=== PATIENT | male | born 1940 | race African-American/Black ===

== ENCOUNTER 2017-10-07 09:23 | Day surgery (SDC) | payer OTHER ==
--- NOTE | 2017-10-04 18:20 | EKG ---
Test Date: 2017-10-04 Test Time: 15:15:24 Line Service Technician: GRANT MEASUREMENT RESULTS: Intervals: Rate: 69 MO: 148 QRSD: 148 QT: 438 QTc: 469 [place]: P: 53 MO: 148 QRS: -71 T: 25 INTERPRETIVE STATEMENTS: Sinus rhythm with premature atrial complexes Right bundle branch block Left axis Abnormal ECG Compared to ECG 03/21/2017 13:28:14 Myocardial infarct finding no longer present Electronically Signed On 10-04-17 18:19:23 CDT by Anil Gonsalez
[2017-10-07] MEDS ORDERED: NA CHLORIDE 0.9% 1,000 ML ONE (10:10)
[2017-10-07] MEDS ORDERED: PROPOFOL 200 MG/20 ML VIAL IV ONE (12:03)
[2017-10-07] MEDS ORDERED: MIDAZOLAM HCL 2 MG/2 ML INJ ONE (12:03)
[2017-10-07] MEDS ORDERED: LIDOCAINE 2% MPF 5 ML VIAL ONE (12:04)
[2017-10-07] MEDS ORDERED: FENTANYL CITR 100 MCG/2 ML ONE (12:04)
[2017-10-07] MEDS ORDERED: ONDANSETRON HCL 40 MG/20 ML VIAL ONE (12:04)
[2017-10-07] MEDS ORDERED: ROCURONIUM 50 MG/5 ML VIAL IV ONE (12:05)
[2017-10-07] MEDS ORDERED: LIDOCAINE 1% W/EPI 1:100,000 MDV 50 ML VIAL ONE (12:32)
[2017-10-07] MEDS ORDERED: EPHEDRINE SULF 50 MG/10 ML SYR ONE (14:14)
--- NOTE | 2017-10-07 14:18 | P.BOP ---
Preoperative diagnosis: dysphonia Postoperative diagnosis: same Primary procedure: DL with injection Master Motorcycle Technician: NONE,NONE Estimated blood loss: nil Specimen: none Anesthesia: General Complications: None Implants: Prolaryn Plus 0.5ml Fluids & blood products: crystalloid 400ml Transferred to: Recovery Room Condition: Good
[2017-10-07] MEDS ORDERED: GLYCOPYRROLATE 0.2 MG/ML SYR ONE (14:22)
[2017-10-07] MEDS ORDERED: NEOSTIGMINE 1 MG/ML -5 ML SYRINGE ONE (14:31)
[2017-10-07] MEDS ORDERED: ONDANSETRON 4 MG/2 ML VIAL ONE (14:49)
[2017-10-07] MEDS ORDERED: MEPERIDINE HCL 50 MG/ML AMP ONE (14:49)
[2017-10-07] MEDS ORDERED: HYDROCOD 2.5mg-ACETAMIN 108mg/5mL Soln ONE (16:19)
--- NOTE | 2017-10-10 12:27 | OP ---
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 Postoperative Diagnoses: Dysphonia and vocal cord atrophy. Procedure: Direct laryngoscopy with therapeutic injection into the vocal cord. Indication For Procedure: Mr. Summers presented to the clinic with dysphonia and significantly decreas ed maximal phonatory time on laryngoscopy. He was noted to have a glottic gap with bilateral vocal c ord atrophy despite normal mobility. The risks, benefits, and alternatives to the procedure were dis cussed with the patient who agreed to proceed. Description Of Procedure: The patient was brought to the operating room. He was placed under genera l anesthesia via oral endotracheal tube. A shoulder roll was placed. The head was extended and a di rect laryngoscopy was performed using the JingElderscanHenokWaveseis laryngoscope fitted with a 15-degree telescope . The laryngoscope was positioned for visualization of the vocal cords and suspended from the [facility] tand. A suction was used to remove a small amount of secretions from the glottic space. Prolaryn Pl us was prepared with the scientific research associate's provided needle for transoral injection. Under telescopic vi sualization, the tip of the needle was inserted just lateral to the right true vocal fold. A small a mount of Prolaryn Plus was injected into the space. The laryngoscope was then re-ingested for better visualization of the left vocal cord. Left vocal cord injection was performed in a similar manner. After left vocal cord injection, a small additional amount of injection was performed onto the right side. Bleeding was minimal. A total of 0.5 mL was injected into this patient. The laryngoscope wa s carefully removed and the patient returned to care of anesthesia for awakening and extubation in e operating room, which proceeded without difficulty. The patient will be observed in the postoperat greg recovery area for any signs of airway obstruction and will remain under strict voice rest for 3 days with conservative voice use for 1 week following that. MEAGHAN/MELVIN Voice ID: [id number] Report ID: [id number]
== END 2017-10-07 16:55 | disposition home or self-care (01) ==
LOC: OR 09:23
PROVIDERS: ATTEND Otolaryngology
PROC: 3E0F8GC Introduction of Other Therapeutic Substance into Respiratory Tract, Via Natural or Artificial Opening Endoscopic (ICD-10-PCS; principal; 2017-10-07 12:15)
DX: R49.0 Dysphonia (principal); J38.3 Other diseases of vocal cords; J38.7 Other diseases of larynx; K21.9 Gastro-esophageal reflux disease without esophagitis; I10 Essential (primary) hypertension; E78.00 Pure hypercholesterolemia, unspecified; Z91.013 Allergy to seafood; E11.9 Type 2 diabetes mellitus without complications; Z87.891 Personal history of nicotine dependence
CPT/HCPCS: 31571; 82962 ×2; 93005; J2175; J2250; J2405; J2710; J3010; J7030

== ENCOUNTER 2019-05-09 10:13 | Emergency (ER) | payer OTHER ==
[2019-05-09 11:30] LABS: Absolute Lymphocytes (CBC) 2.7 K/uL (0.7-4.9); Basophils % 0.7 % (0-1.3); Hematocrit 34.2 % (39.6-49.0); Lymphocytes % 42.2 % (15.3-44.8); MPV 8.2 fL (7.6-11.3); RBC Red Blood Cell Count 3.92 M/uL (4.33-5.43)
--- NOTE | 2019-05-09 11:32 | RAD REPORT ---
EXAM DESCRIPTION: RAD - Chest Single View - 05/09/2019 11:26 am CLINICAL HISTORY: DYSPNEA Chest pain. COMPARISON: Chest Pa And Lat (2 Views) dated 12/06/2016; CHEST PA AND LAT 2 VIEW dated 10/02/2009; CHES T PA AND LAT 2 VIEW dated 07/08/2004 FINDINGS: Portable technique limits examination quality. The lungs are grossly clear. The heart is normal in size. No displaced fractures. IMPRESSION: No acute intrathoracic process suspected.
[2019-05-09 11:36] LABS: Protime INR 1.1
[2019-05-09 11:52] LABS: Albumin 3.6 g/dL (3.4-5.0); Bilirubin Direct 0.3 mg/dL (0-0.2); Bilirubin Total 1.1 mg/dL (0.2-1.0); Magnesium 1.9 mg/dL (1.8-2.4); Potassium 4.1 mmol/L (3.5-5.1); Protein, Total 7.6 g/dL (6.4-8.2); Troponin (Emerg Dept Use Only) 0.02 ng/mL (0.0-0.045)
--- NOTE | 2019-05-09 13:35 | ER ---
Nurse's Notes [facility] Name: Deepak Summers Age: 78 yrs Sex: Male : 1940 Arrival Date: 05/09/2019 Time: 10:16 Bed 2 Private MD: Marcus Monae Diagnosis: Atrioventricular block, complete Presentation: 05/08 10:32 Chief complaint: Patient states: Fatigue and shortness of breath with activity for the aj1 past 10 days. Denies pain. Coronavirus screen: The patient has NOT traveled to a country currently being monitored by the [facility] within the last 14 days. Ebola Screen: Patient denies travel to an Ebola-affected area in the 21 days before illness onset. Initial Sepsis Screen: Does the patient meet any 2 criteria? No. Patient's initial sepsis screen is negative. Does the patient have a suspected source of infection? No. Patient's initial sepsis screen is negative. Risk Assessment: Do you want to hurt yourself or someone else? Patient reports no desire to harm self or others. 10:32 Method Of Arrival: Ambulatory aj1 10:32 Acuity: DANIEL 2 aj1 12:17 Onset of symptoms was May 09, 2019. tw2 Triage Assessment: 10:37 General: Appears in no apparent distress. comfortable, Behavior is calm, cooperative, aj1 appropriate for age. Pain: Denies pain. Historical: - Allergies: 10:36 SHELLFISH; aj1 - Home Meds: 10:36 finasteride 5 mg oral tab 1 tab once daily [Active]; losartan-hydrochlorothiazide aj1 100-25 mg oral tab 1 tab once daily [Active]; meclizine 12.5 mg Oral tab 1 tabs once daily [Active]; oxybutynin chloride 5 mg Oral tr24 1 tab once daily [Active]; pantoprazole 40 mg oral TbEC 1 tab once daily [Active]; simvastatin 20 mg Oral tab 1 tab once daily [Active]; tramadol 50 mg Oral tab 1 tab thee times daily [Active]; - PMHx: 10:36 Diabetes - NIDDM; Hypertension; aj1 - Immunization history:: Adult Immunizations up to date, Flu vaccine is up to date. - Social history:: Smoking status: Patient denies any tobacco usage or history of. Patient/guardian denies using alcohol, street drugs. Screenin:35 Abuse screen: Denies threats or abuse. Denies injuries from another. Nutritional aj1 screening: No deficits noted. Tuberculosis screening: No symptoms or risk factors identified. 12:17 Fall Risk None identified. tw2 Assessment: 10:35 General: Appears in no apparent distress. comfortable, Behavior is calm, cooperative, aj1 appropriate for age, Reports fatigue for for the past 10 days. Pain: Denies pain. Neuro: Level of Consciousness is awake, alert, obeys commands, Oriented to person, place, time, situation. Cardiovascular: Reports shortness of breath, Denies chest pain, Heart tones S1 S2 present Patient's skin is warm and dry. Rhythm is 3rd degree heart block. Respiratory: Reports shortness of breath on exertion Airway is patent Respiratory effort is even, unlabored, Respiratory pattern is regular, symmetrical. GI: No signs and/or symptoms were reported involving the gastrointestinal system. Abdomen is flat, non-distended. : No signs and/or symptoms were reported regarding the genitourinary system. EENT: No signs and/or symptoms were reported regarding the EENT system. Derm: No signs and/or symptoms reported regarding the dermatologic system. Skin is pink, warm \T\ dry. normal. Musculoskeletal: No signs and/or symptoms reported regarding the musculoskeletal system. Circulation, motion, and sensation intact. 11:04 Reassessment: Patient's heart rate is dropping down to 36 bpm. Notified JUAN MANUEL Pulido. aj1 Patient transported to ER bed 2. 12:00 Reassessment: Patient appears in no apparent distress at this time. Patient and/or hb family updated on plan of care and expected duration. Pain level reassessed. Patient is alert, oriented x 3, equal unlabored respirations, skin warm/dry/pink. 13:00 Reassessment: Patient appears in no apparent distress at this time. Patient and/or hb family updated on plan of care and expected duration. Pain level reassessed. HR 27-38, PA Robby aware. 13:54 Reassessment: Patient appears in no apparent distress at this time. Patient and/or tw2 family updated on plan of care and expected duration. Pain level reassessed. 14:59 Reassessment: Patient appears in no apparent distress at this time. Patient and/or tw2 family updated on plan of care and expected duration. Pain level reassessed. Patient states symptoms have not improved. Vital Signs: 10:32 BP 152 / 64; Pulse 44; Resp 18; Pulse Ox 100% on R/A; Weight 74.84 kg (R); Height 5 ft. aj1 7 in. (170.18 cm) (R); Pain 0/10; 11:07 BP 172 / 70; Pulse 37; Resp 21; Temp 98.0; Pulse Ox 100% on R/A; aj1 12:00 BP 154 / 65; Pulse 36; Resp 15; Pulse Ox 100% on R/A; hb 12:30 BP 138 / 73; Pulse 57; Resp 17; Pulse Ox 100% on R/A; tw2 12:53 BP 138 / 73; Pulse 29; Resp 17; Pulse Ox 100% on R/A; tw2 12:59 BP 165 / 83; Pulse 42; Resp 17; Pulse Ox 100% on R/A; tw2 13:53 BP 176 / 65; Pulse 36; Resp 17; Pulse Ox 95% on R/A; tw2 14:59 BP 172 / 67; Pulse 31; Resp 17; Pulse Ox 99% on R/A; tw2 10:32 Body Mass Index 25.84 (74.84 kg, 170.18 cm) aj1 12:53 provider notified and at bedside at this time. pt a\T\o x4 nad at this time. no further tw2 orders at this time, Vitals: 12:00 Cardiac Rhythm Assessment. tw2 ED Course: 10:16 Patient arrived in ED. ag5 10:16 Angelica Echeverria MD is Private Physician. ag5 10:17 Marcus Monae MD is Private Physician. ag5 10:31 Gosia Ferreira, LUIS is Primary Nurse. aj1 10:33 Triage completed. aj1 10:34 Robby Bah PA is PHCP. jr8 10:34 Eran Robison MD is Attending Physician. jr8 10:35 Patient has correct armband on for positive identification. Placed in gown. Bed in low aj1 position. Call light in reach. Side rails up X 1. powder mixer on. Pulse ox on. NIBP on. 10:35 No provider procedures requiring assistance completed. aj1 10:37 Arm band placed on. aj1 10:40 Missed attempt(s): 22 gauge in left antecubital area. Bleeding controlled, band aid aj1 applied, catheter tip intact. 10:43 EKG done, by ED staff, reviewed by Robby ZAMBRANO. jb1 11:07 Report given to Heather. SMITH. aj1 11:15 Missed attempt(s): 22 gauge in left antecubital area. Bleeding controlled, band aid tw2 applied, catheter tip intact. 11:22 Inserted saline lock: 18 gauge in left EJ, using aseptic technique. ,using aseptic hb technique. by Robby ZAMBRANO Blood collected. 12:16 Primary Nurse role handed off by Gosia Ferreira, LUIS tw2 12:16 Teri Tobias, LUIS is Primary Nurse. tw2 13:53 Report given to LUIS Soto at [facility]. tw2 14:59 Patient transferred, IV remains in place. tw2 Administered Medications: No medications were administered Outcome: 13:34 ER care complete, transfer ordered by . jr8 14:59 Patient left the ED. tw2 14:59 Transferred by ground EMS to [facility]. tw2 14:59 critical 14:59 Instructed on the need for transfer. Signatures: Raul Marin jb1 Gosia Ferreira RN RN aj1 Robby Bah PA PA jr8 Talya Gonzalez RN RN hb Wise, Tara, RN RN tw2 Saleem Key ag5 Corrections: (The following items were deleted from the chart) 12:59 12:55 BP 138 / 73; Pulse 29bpm; Resp 17bpm; Pulse Ox 100% RA; provider notified and at tw2 bedside at this time. pt a\T\o x4 nad at this time. no further orders at this time, ; tw2
--- NOTE | 2019-05-09 13:37 | EDPHYS ---
Physician Documentation [facility] Name: Deepak Summers Age: 78 yrs Sex: Male : 1940 Arrival Date: 05/09/2019 Time: 10:16 Bed 2 Private MD: Marcus Monae ED Physician Eran Robison HPI: 05/08 12:08 This 78 yrs old Black Male presents to ER via Ambulatory with complaints of General jr8 Weakness, JACOBS. 12:08 The patient has shortness of breath with light activity. Onset: The symptoms/episode jr8 began/occurred gradually, 10 day(s) ago. Duration: The symptoms are continuous. The patient's shortness of breath is aggravated by light activity, walking. Associated signs and symptoms: Pertinent positives: fatigue . Severity of symptoms: At their worst the symptoms were moderate in the emergency department the symptoms are unchanged. The patient has not experienced similar symptoms in the past. The patient has not recently seen a physician. Patient stated that over the past 10 days noticed that he has had increased fatigue and JACOBS that he has never had before. Denies recent chest pain or any other acute episodes. Stated that he came to ED today because he can barely get up and walk anywhere without feeling extremely worn out . Historical: - Allergies: 10:36 SHELLFISH; aj1 - Home Meds: 10:36 finasteride 5 mg oral tab 1 tab once daily [Active]; losartan-hydrochlorothiazide aj1 100-25 mg oral tab 1 tab once daily [Active]; meclizine 12.5 mg Oral tab 1 tabs once daily [Active]; oxybutynin chloride 5 mg Oral tr24 1 tab once daily [Active]; pantoprazole 40 mg oral TbEC 1 tab once daily [Active]; simvastatin 20 mg Oral tab 1 tab once daily [Active]; tramadol 50 mg Oral tab 1 tab thee times daily [Active]; - PMHx: 10:36 Diabetes - NIDDM; Hypertension; aj1 - Immunization history:: Adult Immunizations up to date, Flu vaccine is up to date. - Social history:: Smoking status: Patient denies any tobacco usage or history of. Patient/guardian denies using alcohol, street drugs. ROS: 12:08 Eyes: Negative for injury, pain, redness, and discharge, ENT: Negative for injury, jr8 pain, and discharge, Neck: Negative for injury, pain, and swelling, Cardiovascular: Negative for chest pain, palpitations, and edema, Abdomen/GI: Negative for abdominal pain, nausea, vomiting, diarrhea, and constipation, Back: Negative for injury and pain, MS/Extremity: Negative for injury and deformity, Skin: Negative for injury, rash, and discoloration, Neuro: Negative for headache, weakness, numbness, tingling, and seizure. 12:08 Constitutional: Positive for fatigue, malaise. 12:08 Respiratory: Positive for dyspnea on exertion, Negative for cough, shortness of breath, sputum production, wheezing. Exam: 12:08 Eyes: Pupils equal round and reactive to light, extra-ocular motions intact. Lids and jr8 lashes normal. Conjunctiva and sclera are non-icteric and not injected. Cornea within normal limits. Periorbital areas with no swelling, redness, or edema. ENT: Nares patent. No nasal discharge, no septal abnormalities noted. Tympanic membranes are normal and external auditory canals are clear. Oropharynx with no redness, swelling, or masses, exudates, or evidence of obstruction, uvula midline. Mucous membranes moist. Neck: Trachea midline, no thyromegaly or masses palpated, and no cervical lymphadenopathy. Supple, full range of motion without nuchal rigidity, or vertebral point tenderness. No Meningismus. Respiratory: Lungs have equal breath sounds bilaterally, clear to auscultation and percussion. No rales, rhonchi or wheezes noted. No increased work of breathing, no retractions or nasal flaring. Abdomen/GI: Soft, non-tender, with normal bowel sounds. No distension or tympany. No guarding or rebound. No evidence of tenderness throughout. Back: No spinal tenderness. No costovertebral tenderness. Full range of motion. Skin: Warm, dry with normal turgor. Normal color with no rashes, no lesions, and no evidence of cellulitis. MS/ Extremity: Pulses equal, no cyanosis. Neurovascular intact. Full, normal range of motion. Neuro: Awake and alert, GCS 15, oriented to person, place, time, and situation. Cranial nerves II-XII grossly intact. Motor strength 5/5 in all extremities. Sensory grossly intact. Cerebellar exam normal. Normal gait. 12:08 Cardiovascular: Rate: bradycardic, Rhythm: irregular, Pulses: Pulses are 2+ in right radial artery and left radial artery. Heart sounds: normal, normal S1and S2, Edema: is not appreciated, JVD: is not appreciated. 12:08 ECG was reviewed by the Attending Physician. Vital Signs: 10:32 BP 152 / 64; Pulse 44; Resp 18; Pulse Ox 100% on R/A; Weight 74.84 kg (R); Height 5 ft. aj1 7 in. (170.18 cm) (R); Pain 0/10; 11:07 BP 172 / 70; Pulse 37; Resp 21; Temp 98.0; Pulse Ox 100% on R/A; aj1 12:00 BP 154 / 65; Pulse 36; Resp 15; Pulse Ox 100% on R/A; hb 12:30 BP 138 / 73; Pulse 57; Resp 17; Pulse Ox 100% on R/A; tw2 12:53 BP 138 / 73; Pulse 29; Resp 17; Pulse Ox 100% on R/A; tw2 12:59 BP 165 / 83; Pulse 42; Resp 17; Pulse Ox 100% on R/A; tw2 13:53 BP 176 / 65; Pulse 36; Resp 17; Pulse Ox 95% on R/A; tw2 14:59 BP 172 / 67; Pulse 31; Resp 17; Pulse Ox 99% on R/A; tw2 10:32 Body Mass Index 25.84 (74.84 kg, 170.18 cm) aj1 12:53 provider notified and at bedside at this time. pt a\T\o x4 nad at this time. no further tw2 orders at this time, MDM: 10:42 Patient medically screened. jr8 12:08 Data reviewed: vital signs, nurses notes, lab test result(s), EKG, radiologic studies, jr8 plain films. Data interpreted: Pulse oximetry: on room air is 100 %. Interpretation: normal. Counseling: I had a detailed discussion with the patient and/or guardian regarding: the historical points, exam findings, and any diagnostic results supporting the discharge/admit diagnosis, lab results, radiology results, the need to transfer to another facility, [facility] does not immediately have the required specialist. ED course: Discussed with patient that he is in a complete heart block with low heart rate. That this is why he is having JACOBS and extreme fatigue. Most likely will require pacemaker and as such will need to be transferred to [facility]. Patient good with this. 13:32 ED course: Dr. Mijares at [facility] contacted and accepted patient . [facility] 05/08 10:34 Order name: Basic Metabolic Panel [facility] 05/08 10:34 Order name: CBC with Diff 05/08 10:34 Order name: LFT's [facility] 05/08 10:34 Order name: Magnesium [facility] 05/08 10:34 Order name: NT PRO-BNP [facility] 05/08 10:34 Order name: PT-INR [facility] 05/08 10:34 Order name: Troponin (emerg Dept Use Only) [facility] 05/08 11:36 Order name: CBC with Automated Diff; Complete Time: 12:07 EDMS 05/08 11:42 Order name: Protime (+INR); Complete Time: 12:07 EDMS 05/08 11:53 Order name: Basic Metabolic Panel; Complete Time: 12:07 EDMS 05/08 11:53 Order name: Liver (Hepatic) Function; Complete Time: 12:07 EDMS 05/08 11:53 Order name: Troponin (Emerg Dept Use Only); Complete Time: 12:07 EDMS 05/08 11:53 Order name: NT PRO-BNP; Complete Time: 12:07 EDMS 05/08 11:54 Order name: Magnesium; Complete Time: 12:07 EDMS 05/08 10:34 Order name: XRAY Chest (1 view) [facility] 05/08 10:34 Order name: EKG; Complete Time: 10:37 05/08 10:34 Order name: Cardiac monitoring; Complete Time: 10:38 05/08 10:34 Order name: EKG - Nurse/Tech; Complete Time: 10:57 05/08 10:34 Order name: IV Saline Lock; Complete Time: 11:39 05/08 10:34 Order name: Labs collected and sent; Complete Time: 11:39 [facility] 05/08 10:34 Order name: O2 Per Protocol; Complete Time: 10:38 05/08 10:34 Order name: O2 Sat Monitoring; Complete Time: 10:38 [facility] 05/08 13:24 Order name: RAD; Complete Time: 13:32 EDMS EC:08 Rate is 43 beats/min. Rhythm is irregular, 3rd degree (complete heart block). Left axis jr8 deviation noted. QRS interval is prolonged at 140 msec. QT interval is normal at 437 msec. No Q waves. T waves are Flattened in lead III. No ST changes noted. Clinical impression: 3rd degree heart block. Interpreted by me. Reviewed by me. Administered Medications: No medications were administered Disposition: 16:37 Co-signature as Attending Physician, Eran Robison MD I agree with the assessment and kdr plan of care. Disposition: 05/09/19 13:34 Transfer ordered to [facility]. Diagnosis is Atrioventricular block, complete. - Reason for transfer: Higher level of care. - Accepting physician is Dr. Mijares . - Condition is Stable. - Problem is new. - Symptoms are unchanged. Signatures: Dispatcher [employer] EDMS Gosia Ferreira, LUIS RN aj1 Eran Robison MD MD kdr Robby Bah PA PA jr8 Teri Tobias RN RN tw2 Corrections: (The following items were deleted from the chart) 14:59 13:34 05/09/2019 13:34 Transfer ordered to [facility]. tw2 Diagnosis is Atrioventricular block, complete. Reason for transfer: Higher level of care. Accepting physician is Dr. Mijares . Condition is Stable. Problem is new. Symptoms are unchanged. jr8
[2019-05-09 15:07] VITALS: TEMP 98
[2019-05-09 15:15] VITALS: BP 176/65; O2SAT 95
--- NOTE | 2019-05-10 08:54 | EKG ---
Test Date: 2019-05-09 Test Time: 10:37:44 Asphalt Blender: SHAQUILLE MEASUREMENT RESULTS: Intervals: Rate: 43 DE: QRSD: 140 QT: 518 QTc: 437 [place]: P: 50 DE: QRS: -64 T: 37 INTERPRETIVE STATEMENTS: complete heart block Right bundle branch block Left anterior fascicular block Bifascicular block Minimal voltage criteria for LVH, may be normal variant Abnormal ECG Compared to ECG 10/04/2017 15:15:24 AV dissociation now present Left anterior fascicular block now present Bifascicular block now present Left ventricular hypertrophy now present Sinus rhythm no longer present Atrial premature complex(es) no longer present Electronically Signed On 05-10-19 08:52:22 CDT by Brandin Guerrier
== END 2019-05-09 14:59 | disposition short-term general hospital (02) ==
LOC: ER 10:13
DX: I44.2 Atrioventricular block, complete (principal); Z91.013 Allergy to seafood; E11.9 Type 2 diabetes mellitus without complications; I10 Essential (primary) hypertension
CPT/HCPCS: 36415; 71045; 80048; 80076; 83735; 83880; 84484; 85025; 85610; 93005; 99285

== ENCOUNTER 2023-12-19 06:41 | Day surgery (SDC) | payer MEDICARE, OTHER ==
[2023-12-16 14:25] LABS: Absolute Eosinophils 0.3 K/uL (0-0.5); Absolute Lymphocytes (CBC) 2.3 K/uL (0.7-4.9); Absolute Monocytes 0.5 K/uL (0.1-1.3); Absolute Neutrophil 2.5 K/uL (1.8-8.0); Basophils % 0.5 % (0-1.3); Eosinophils % 5.4 % (0-4.4); Hematocrit 35.8 % (39.6-49.0); Hemoglobin 11.3 g/dL (13.6-17.9); Lymphocytes % 41.1 % (15.3-44.8); MCH 28.3 pg (27.0-35.0); MCHC 31.6 g/dL (32.0-36.0); MCV 89.5 fL (80-100); MPV 7.7 fL (7.6-11.3); Monocytes % 9.1 % (3.3-12.3); Neutrophils % 43.9 % (41.7-73.7); Platelets 270 thou/uL (152-406); Red Cell Distribution Width 13.4 % (12.1-15.2)
--- NOTE | 2023-12-16 14:32 | RAD REPORT ---
Procedure: Chest Pa And Lat (2 Views) HISTORY: Preop for cardiac catheterization COMPARISON: 2019 FINDINGS: The lungs appear clear of acute infiltrate. No significant pleural effusion noted. The heart is normal size. Pacemaker leads in place. IMPRESSION: No acute abnormality is displayed.
[2023-12-16 14:45] LABS: PT Prothrombin Time 11.3 SECONDS (9.4-12.5); PTT, Activated Partial Thromb 29.6 SECONDS (24.3-36.9); Protime INR 1.01
[2023-12-16 14:58] LABS: Anion Gap 6.1 mEq/L (5.0-15.0); Potassium 4.1 mEq/L (3.5-5.1)
[2023-12-19] MEDS ORDERED: NA CHLORIDE 0.9% 500 ML ONE (06:45)
[2023-12-19] MEDS ORDERED: FENTANYL CITR 100 MCG/2 ML ONE (07:19)
[2023-12-19] MEDS ORDERED: MIDAZOLAM HCL 2 MG/2 ML INJ ONE (07:19)
[2023-12-19] MEDS ORDERED: LIDOCAINE 1% 20 ML MDV ONE (07:33)
[2023-12-19] MEDS ORDERED: HEPA 1000U/500MLS 2,000 UNIT/1,000 ML BAG IV ONE (07:33)
[2023-12-19] MEDS ORDERED: HEPARIN 10,000 UNIT/10 ML VIAL IV ONE (07:33)
[2023-12-19] MEDS ORDERED: ATROPINE SULF 1 MG/10 ML SYR IV ONE (07:34)
[2023-12-19] MEDS ORDERED: HEPARIN 5000 UNIT/ML 1 ML VIAL ONE (07:34)
[2023-12-19] MEDS ORDERED: DIPHENHYDRAMINE 50 MG/ML VIAL ONE (07:35)
[2023-12-19] MEDS ORDERED: NITROGLYCERIN/D5W 50 MG/250 ML BTL IV ONE (07:35)
[2023-12-19] MEDS ORDERED: METHYLPREDNISOLONE 125 MG INJ ONE (07:35)
[2023-12-19 10:53] VITALS: BP 142/78; TEMP 98.4; O2SAT 97
--- NOTE | 2023-12-19 23:24 | OP ---
Date of Procedure: 12/19/2023 Surgeon: Mike Bynum Procedures Performed: 1.Left heart catheterization. 2.Selective coronary angiogram. Indication For Procedure: Shortness of breath, abnormal stress test. Complications: None. Estimated Blood Loss: Less than 50 cc. Access: Right radial, closed by TR band. Sedation Time: 20 minutes with 1 of Versed and 25 of fentanyl. Description Of Procedure: After risks, benefits, and alternatives were explained to the patient, the patient agreed to proceed with the procedure and signed informed consent. The patient was brought b k to the collaborating supervising physician, prepped and draped in sterile fashion. Time-out was performed. Sedation was ad ministered. Next, right radial access was obtained. [place] 4 catheter was advanced over J-wire to th e LV cavity. LVEDP was obtained. Pullback did not show any gradient. Same catheter was used for se lective angiogram. At the end of procedure, catheter was removed over a J-wire. Sheath was removed. TR band was applied. Hemostasis was achieved. The patient was moved back to recovery in stable co ndition. Findings: 1.Left main, normal. 2.LAD, normal. 3.Left circ, normal. 4.RCA, normal. 5.LVEDP 10 mmHg. Assessment And Plan: 1.Normal coronaries. 2.Normal filling pressures. 3.The plan will be to continue medical management. KERI Voice ID: [id number] Report ID: [id number]
--- NOTE | 2023-12-20 13:04 | EKG ---
Test Date: 2023-12-16 Test Time: 13:57:30 Lan Analyst: SAMANTHA MEASUREMENT RESULTS: Intervals: Rate: 72 MD: QRSD: 184 QT: 460 QTc: 503 [place]: P: MD: QRS: -81 T: 98 INTERPRETIVE STATEMENTS: Electronic ventricular pacemaker Compared to ECG 05/09/2019 10:37:44 AV block, complete (third-degree) no longer present Right bundle-branch block no longer present Left anterior fascicular block no longer present Bifascicular block no longer present Left ventricular hypertrophy no longer present Electronically Signed On 12-20-23 12:53:25 CDT by Mike Bynum
== END 2023-12-19 10:44 | disposition home or self-care (01) ==
LOC: CCL 06:41
PROVIDERS: ATTEND Internal Medicine Interventional Cardiology
DX: R94.39 Abnormal result of other cardiovascular function study (principal); R06.02 Shortness of breath; I35.1 Nonrheumatic aortic (valve) insufficiency; I49.5 Sick sinus syndrome; I10 Essential (primary) hypertension; E78.2 Mixed hyperlipidemia; E11.9 Type 2 diabetes mellitus without complications; Z95.0 Presence of cardiac pacemaker; Z79.899 Other long term (current) drug therapy; Z91.041 Radiographic dye allergy status; Z91.013 Allergy to seafood
CPT/HCPCS: 93005; 85025; 80048; 36415; 85610; 85730; 71046; 93458; 76937; C1893; Q9966; J1644; J2001; J1200; J2250; J3010; J2919; J7040; 99152; J0461

== ENCOUNTER 2024-12-21 09:45 | Emergency (ER) | payer MEDICARE, OTHER ==
[2024-12-21] MEDS ORDERED: HYDROMORPHONE HCL 1 MG/ML INJ ONE (11:17)
[2024-12-21] MEDS ORDERED: CYCLOBENZAPRINE 10 MG TAB ONE (11:17)
[2024-12-21] MEDS ORDERED: KETOROLAC 30 MG/ML INJ ONE (11:17)
--- NOTE | 2024-12-21 12:44 | RAD REPORT ---
EXAMINATION: Lumbar Spine 3 Views CLINICAL INDICATION: Male, 84 years old. low back pain with bilateral radiculopathy TECHNIQUE: AP, lateral, focused lateral lumbosacral views of the lumbar spine were obtained. [id number]. COMPARISON: No prior exam. FINDINGS: ALIGNMENT: Grade 1 anterolisthesis of L4 and L5. Partially imaged thoracolumbar curvature. BONES: Vertebral bodies are normal in height. No aggressive osseous lesions. DEGENERATIVE: Diffuse disc height loss which is most pronounced at L1-2, L4-5, L5-S1 where the disc h eight loss is moderate. Mild disc height loss otherwise. Vacuum disc is present at L1-2 and L2-3. SOFT TISSUE: No soft tissue abnormalities. IMPRESSION: No acute lumbar spine abnormality.
--- NOTE | 2024-12-21 12:57 | ER ---
Nurse's Notes [facility] Name: Deepak Summers Age: 84 yrs Sex: Male : 1940 Arrival Date: 12/21/2024 Time: 09:45 Bed 15 Private MD: Diagnosis: Sciatica, low back pain Presentation: 12/21 10:02 Chief complaint: Patient states: L shoulder, L lower back/ flank and L leg pain that ss began 1 week ago. No known injury. Pt reports it began after getting out of bed. Coronavirus screen: Client denies travel out of the [place] in the last 14 days. Ebola Screen: Patient denies exposure to infectious person. Patient denies travel to an Ebola-affected area in the 21 days before illness onset. Initial Sepsis Screen: Does the patient meet any 2 criteria? No. Patient's initial sepsis screen is negative. Does the patient have a suspected source of infection? No. Patient's initial sepsis screen is negative. Risk Assessment: Do you want to hurt yourself or someone else? Patient reports no desire to harm self or others. Onset of symptoms was December 14, 2024. 10:02 Method Of Arrival: Ambulatory ss 10:02 Acuity: DANIEL 3 ss Historical: - Allergies: 10:04 SHELLFISH; ss - PMHx: 10:04 Diabetes - NIDDM; Hypertension; ss - Immunization history:: Adult Immunizations not up to date. - Infectious Disease History:: Denies. - Social history:: Smoking status: Patient denies any tobacco usage or history of. Screenin:12 [facility] ED Fall Risk Assessment (Adult) History of falling in the last 3 months, ar8 including since admission No falls in past 3 months (0 pts) Confusion or Disorientation No (0 pts) Intoxicated or Sedated No (0 pts) Impaired Gait No (0 pts) Mobility Assist Device Used No (0 pt) Altered Elimination No (0 pt) Score/Fall Risk Level 0 - 2 = Low Risk Oriented to surroundings, Maintained a safe environment. Abuse screen: Denies threats or abuse. Nutritional screening: No deficits noted. Tuberculosis screening: No symptoms or risk factors identified. Assessment: 11:12 General: Appears in no apparent distress. Behavior is calm, cooperative. Pain: ar8 Complains of pain in left hip and left leg. Neuro: Level of Consciousness is awake, alert, obeys commands, Oriented to person, place, time, situation. Cardiovascular: Patient's skin is warm and dry. Respiratory: Airway is patent Respiratory effort is even, unlabored, Respiratory pattern is regular, symmetrical. GI: No signs and/or symptoms were reported involving the gastrointestinal system. : No signs and/or symptoms were reported regarding the genitourinary system. Musculoskeletal: Reports pain in left hip and left leg. 13:15 Reassessment: Delay in discharge- awaiting ride. ar8 Vital Signs: 10:02 Resp 16; Weight 73.94 kg; Height 5 ft. 7 in. ; Pain 5/10; ss 10:04 BP 123 / 69; Pulse 105; Resp 16; Pulse Ox 100% on R/A; ss 10:06 Temp 98.2(O); ss 11:12 BP 122 / 68; Pulse 87; Resp 17; Pulse Ox 100% on R/A; Pain 3/10; ar8 12:00 BP 123 / 74; Pulse 75; Resp 18; Pulse Ox 100% on R/A; ar8 12:51 BP 131 / 71; Pulse 81; Resp 16; Pulse Ox 100% on R/A; Pain 1/10; ar8 12:51 Pain 1/10; ar8 12:51 Pain 1/10; ar8 13:45 BP 124 / 99; Pulse 94; Resp 18; Pulse Ox 98% on R/A; Pain 1/10; ar8 10:02 Body Mass Index 25.53 (73.94 kg, 170.18 cm) ss 10:02 Pain Scale: Adult ss 11:12 Pain Scale: Adult ar8 12:51 Pain Scale: Adult ar8 12:51 Pain Scale: Adult ar8 12:51 Pain Scale: Adult ar8 13:45 Pain Scale: Adult ar8 ED Course: 09:52 Patient arrived in ED. al6 09:52 Dinorah Haywood MD is Attending Physician. sp3 10:04 Triage completed. ss 10:05 Arm band placed on right wrist. ss 10:50 Chidi Torres, LUIS is Primary Nurse. ar8 11:12 Bed in low position. Call light in reach. Side rails up X2. Provided Education on: plan ar8 of care. Pulse ox on. NIBP on. 11:12 No provider procedures requiring assistance completed. ar8 12:41 Lumbar Spine (3 Views) XRAY In Process Unspecified. EDMS 12:41 Patient moved back from radiology. ar8 12:56 Marcello Sierra MD is Referral Physician. sp3 14:30 Patient did not have IV access during this emergency room visit. ar8 Administered Medications: 11:21 Drug: Cyclobenzaprine PO 10 mg PO once Route: PO; ar8 12:00 Follow up: Response: No adverse reaction; Marked relief of symptoms ar8 11:22 Drug: Ketorolac IM 30 mg IM once Route: IM; Site: right ventrogluteal; ar8 12:51 Follow up: Pain 1/10 Adult; Response: No adverse reaction; Pain is decreased ar8 11:23 Drug: HYDROmorphone IM 1 mg IM once Route: IM; Site: left ventrogluteal; ar8 12:51 Follow up: Pain 1/10 Adult; Response: No adverse reaction; Pain is decreased ar8 Medication: 11:12 VIS not applicable for this client. ar8 Outcome: 12:57 Discharge ordered by . sp3 14:30 Discharged to home ambulatory, ar8 14:30 Condition: stable 14:30 Discharge instructions given to patient, Instructed on discharge instructions, follow up and referral plans. medication usage, Demonstrated understanding of instructions, follow-up care, medications, Prescriptions given X 3, 14:37 Patient left the ED. ar8 Signatures: Dispatcher [employer] EDMS Sasha Cabral RN RN ss Dinorah Haywood MD MD sp3 Natalie Hannon Andrea, RN RN ar8
--- NOTE | 2024-12-21 12:57 | EDPHYS ---
Physician Documentation [facility] Name: Deepak Summers Age: 84 yrs Sex: Male : 1940 Arrival Date: 12/21/2024 Time: 09:45 Bed 15 Private MD: ED Physician Dinorah Haywood HPI: 12/21 11:18 This 84 yrs old Black Male presents to ER via Ambulatory with complaints of Back Pain. sp3 11:18 84-year-old male with history of diabetes well-controlled on no meds, hypertension, sp3 history of sciatica now presents to the ED with low back pain over the last 4 to 5 days particularly on the right buttock and hip. Patient has taken Tylenol. He states that now also is a little bit on the left side. He denies any mid or upper back pain, anterior abdominal pain, pulsating pain, chest pain, shortness of breath, headache, or any other signs or symptoms on ROS at this time.. Historical: - Allergies: 10:04 SHELLFISH; ss - PMHx: 10:04 Diabetes - NIDDM; Hypertension; ss - Immunization history:: Adult Immunizations not up to date. - Infectious Disease History:: Denies. - Social history:: Smoking status: Patient denies any tobacco usage or history of. ROS: 11:20 Constitutional: Negative for fever, chills, and weight loss, Eyes: Negative for injury, sp3 pain, redness, and discharge, ENT: Negative for injury, pain, and discharge, Neck: Negative for injury, pain, and swelling, Cardiovascular: Negative for chest pain, palpitations, and edema, Respiratory: Negative for shortness of breath, cough, wheezing, and pleuritic chest pain, Abdomen/GI: Negative for abdominal pain, nausea, vomiting, diarrhea, and constipation, Skin: Negative for injury, rash, and discoloration, Neuro: Negative for headache, weakness, numbness, tingling, and seizure, Psych: Negative for depression, anxiety, suicide ideation, homicidal ideation, and hallucinations, Allergy/Immunology: Negative for hives, rash, and allergies, Endocrine: Negative for neck swelling, polydipsia, polyuria, polyphagia, and marked weight changes, Hematologic/Lymphatic: Negative for swollen nodes, abnormal bleeding, and unusual bruising, 11:20 All other systems are negative, Exam: 11:21 Constitutional: This is a well developed, well nourished patient who is awake, alert, sp3 and in no acute distress. Head/Face: Normocephalic, atraumatic. Eyes: Pupils equal round and reactive to light, extra-ocular motions intact. Lids and lashes normal. Conjunctiva and sclera are non-icteric and not injected. Cornea within normal limits. Periorbital areas with no swelling, redness, or edema. Neck: Trachea midline, no thyromegaly or masses palpated, and no cervical lymphadenopathy. Supple, full range of motion without nuchal rigidity, or vertebral point tenderness. No Meningismus. Chest/axilla: Normal chest wall appearance and motion. Nontender with no deformity. No lesions are appreciated. Cardiovascular: Regular rate and rhythm with a normal S1 and S2. No gallops, murmurs, or rubs. Normal PMI, no JVD. No pulse deficits. Respiratory: Lungs have equal breath sounds bilaterally, clear to auscultation and percussion. No rales, rhonchi or wheezes noted. No increased work of breathing, no retractions or nasal flaring. Abdomen/GI: Soft, non-tender, with normal bowel sounds. No distension or tympany. No guarding or rebound. No evidence of tenderness throughout. Skin: Warm, dry with normal turgor. Normal color with no rashes, no lesions, and no evidence of cellulitis. Neuro: Awake and alert, GCS 15, oriented to person, place, time, and situation. Cranial nerves II-XII grossly intact. Motor strength 5/5 in all extremities. Sensory grossly intact. Cerebellar exam normal. Normal gait. Psych: Awake, alert, with orientation to person, place and time. Behavior, mood, and affect are within normal limits. 11:21 Back: Mild pain to palpation of the lower musculature. Pain is inducible right greater than left with straight leg raise., Vital Signs: 10:02 Resp 16; Weight 73.94 kg; Height 5 ft. 7 in. ; Pain 5/10; ss 10:04 BP 123 / 69; Pulse 105; Resp 16; Pulse Ox 100% on R/A; ss 10:06 Temp 98.2(O); ss 11:12 BP 122 / 68; Pulse 87; Resp 17; Pulse Ox 100% on R/A; Pain 3/10; ar8 12:00 BP 123 / 74; Pulse 75; Resp 18; Pulse Ox 100% on R/A; ar8 12:51 BP 131 / 71; Pulse 81; Resp 16; Pulse Ox 100% on R/A; Pain 1/10; ar8 12:51 Pain 1/10; ar8 12:51 Pain 1/10; ar8 13:45 BP 124 / 99; Pulse 94; Resp 18; Pulse Ox 98% on R/A; Pain 1/10; ar8 10:02 Body Mass Index 25.53 (73.94 kg, 170.18 cm) ss 10:02 Pain Scale: Adult ss 11:12 Pain Scale: Adult ar8 12:51 Pain Scale: Adult ar8 12:51 Pain Scale: Adult ar8 12:51 Pain Scale: Adult ar8 13:45 Pain Scale: Adult ar8 MDM: 10:05 Medical Screening Exam initiated sp3 11:21 Data reviewed: vital signs, nurses notes, radiologic studies. ED course: 84-year-old sp3 male with PMH above and history of low back pain presents with recurrent symptoms. Vital signs are normal patient is in no acute distress. He did not drive here. Differential diagnosis includes sciatica versus musculoskeletal symptoms/pain versus lumbar strain. Clinically have ruled out AAA, pathology, GI pathology, or any other critical process. Will obtain x-rays of the lumbar spine and treat with intramuscular Dilaudid, intramuscular ketorolac and p.o. Flexeril. Probable discharge home if no significant findings for outpatient MRI which patient has acknowledged he will proceed with his PCP.. 12:53 ED course: X-rays are negative. Will discharge patient home on p.o. pain meds and sp3 Flexeril.. 12/21 11:14 Order name: Lumbar Spine (3 Views) XRAY; Complete Time: 12:53 sp3 Administered Medications: 11:21 Drug: Cyclobenzaprine PO 10 mg PO once Route: PO; ar8 12:00 Follow up: Response: No adverse reaction; Marked relief of symptoms ar8 11:22 Drug: Ketorolac IM 30 mg IM once Route: IM; Site: right ventrogluteal; ar8 12:51 Follow up: Pain 1 Adult; Response: No adverse reaction; Pain is decreased ar8 11:23 Drug: HYDROmorphone IM 1 mg IM once Route: IM; Site: left ventrogluteal; ar8 12:51 Follow up: Pain 03/09 Adult; Response: No adverse reaction; Pain is decreased ar8 Disposition Summary: 12/21/24 12:57 Discharge Ordered Notes: Location: Home sp3 Condition: Stable sp3 Diagnosis - Sciatica, low back pain sp3 Followup: sp3 - With: Marcello Sierra MD - When: Upon discharge from the Emergency Department - Reason: Continuance of care Discharge Instructions: - Discharge Summary Sheet sp3 - Sciatica sp3 Forms: - Medication Reconciliation Form sp3 - Antibiotic Education sp3 - Prescription Opioid Use sp3 - Patient Portal Instructions sp3 - Leadership Thank You Letter sp3 Prescriptions: - Diclofenac Sodium 75 mg Oral Tablet Sustained Release - take 1 tablet ORAL route 2 times per day; 30 tablet; Refills: 0, Product sp3 Selection Permitted - Tramadol 50 mg Oral Tablet - take 1 tablet ORAL route every 8 hours as needed; 12 tablet; Refills: 0, sp3 Product Selection Permitted - Cyclobenzaprine 5 mg Oral Tablet - take 1 tablet ORAL route 3 times per day As needed; 15 tablet; Refills: 0, sp3 Product Selection Permitted Signatures: Dispatcher [employer] Sasha Day RN RN ss Dinorah Haywood MD MD sp3 Chidi Torres RN RN ar8
[2024-12-21 16:13] VITALS: TEMP 98.2
[2024-12-21 16:19] VITALS: BP 124/99; O2SAT 98
== END 2024-12-21 14:37 | disposition home or self-care (01) ==
LOC: ER 09:45
DX: M54.32 Sciatica, left side (principal)
CPT/HCPCS: 72100; 96372; 99284; J1885; J1171